=== PATIENT | female | born 1975 | race African-American/Black ===

== ENCOUNTER 2021-05-10 11:26 | Emergency (ER) | payer OTHER ==
[2021-05-10] MEDS ORDERED: HYDROcodone/Acetaminophen 5/325 mg Tablet ONE ×2 (12:26→13:02)
[2021-05-10] MEDS ORDERED: Ondansetron ODT 4 MG TAB ONE ×2 (12:27→13:02)
[2021-05-10] MEDS ORDERED: Ibuprofen 800 MG TAB ONE (12:27)
[2021-05-10] MEDS ORDERED: Lorazepam 1 MG TAB ONE (12:28)
[2021-05-10 12:31] LABS: #Lymphocytes 0.6 thou/uL (1.20-3.40); #Monocytes 0.4 thou/uL (0.11-0.59); #Neutrophils 4.3 thou/uL (1.40-6.50); %Basophils 0.3 % (0.0-1.0); %Eosinophils 0.1 % (0.0-10.0); %Lymphocytes 10.6 % (21.0-51.0); %Monocytes 7.9 % (0.0-10.0); Hemoglobin 13.8 g/dL (12.0-16.0); Mean Corpuscular HGB CONC 33.6 g/dL (32.0-36.0); Mean Corpuscular Hemoglobin 30.6 pg (27.0-31.0); Platelet Count 474 thou/uL (130-400); RBC Distribution Width 12.1 % (11.5-14.5); Red Blood Cell (RBC) Count 4.52 mill/uL (4.20-5.40); White Blood Cell (WBC) Count 5.4 thou/uL (4.8-10.8)
[2021-05-10 12:53] LABS: ALT (SGPT) 15 U/L (8-55); AST (SGOT) 25 U/L (5-34); Albumin 3.7 g/dL (3.5-5.0); Alkaline Phosphatase 69 U/L (40-110); Anion Gap 16 mmol/L (10-20); BUN (Urea Nitrogen) 14 mg/dL (7.0-18.7); Bilirubin, Total 0.9 mg/dL (0.2-1.2); Calc. Creatinine Clearance 0 mL/min (70-130); Calcium 9.4 mg/dL (7.8-10.44); Carbon Dioxide 27 mmol/L (22-29); Chloride 91 mmol/L (98-107); Globulin 3.8 g/dL (2.4-3.5); Glucose 107 mg/dL (70-105); Potassium 4.7 mmol/L (3.5-5.1); Protein, Total 7.5 g/dL (6.0-8.3); Sodium 129 mmol/L (136-145)
[2021-05-10] MEDS ORDERED: Metoprolol Tartrate 50 MG TAB ONE (13:39)
== END 2021-05-10 15:08 | disposition home or self-care (01) ==
LOC: ERS 11:26
DX: F43.0 Acute stress reaction (principal); I10 Essential (primary) hypertension; G89.18 Other acute postprocedural pain; N64.4 Mastodynia
CPT/HCPCS: 36415; 80053; 84484; 85025; 93005; Q0162

== ENCOUNTER 2021-05-14 16:49 | Inpatient (IN) | payer OTHER ==
[~2021-05-14 16:49] MED LIST: Iopamidol-370 76% 500 ML 1 ML ONE
[2021-05-14 17:44] LABS: #Lymphocytes 0.8 thou/uL (1.20-3.40); #Monocytes 0.4 thou/uL (0.11-0.59); #Neutrophils 3.6 thou/uL (1.40-6.50); %Basophils 0.2 % (0.0-1.0); %Eosinophils 0.2 % (0.0-10.0); %Lymphocytes 16.2 % (21.0-51.0); %Monocytes 7.8 % (0.0-10.0); %Neutrophils 75.7 % (42.0-75.0); Hemoglobin 13.5 g/dL (12.0-16.0); Mean Corpuscular HGB CONC 31.6 g/dL (32.0-36.0); Mean Corpuscular Hemoglobin 29.1 pg (27.0-31.0); Mean Corpuscular Volume 92.1 fL (78.0-98.0); Mean Platelet Volume 6.8 fL (7.4-10.4); Platelet Count 488 thou/uL (130-400); RBC Distribution Width 12.3 % (11.5-14.5); Red Blood Cell (RBC) Count 4.65 mill/uL (4.20-5.40); White Blood Cell (WBC) Count 4.7 thou/uL (4.8-10.8)
[2021-05-14 18:03] LABS: ALT (SGPT) 16 U/L (8-55); AST (SGOT) 28 U/L (5-34); Albumin 3.7 g/dL (3.5-5.0); Alkaline Phosphatase 68 U/L (40-110); Anion Gap 16 mmol/L (10-20); BUN (Urea Nitrogen) 19 mg/dL (7.0-18.7); Bilirubin, Total 0.7 mg/dL (0.2-1.2); Calc. Creatinine Clearance 0 mL/min (70-130); Calcium 9.8 mg/dL (7.8-10.44); Carbon Dioxide 27 mmol/L (22-29); Chloride 89 mmol/L (98-107); Globulin 3.9 g/dL (2.4-3.5); Glucose 111 mg/dL (70-105); Potassium 4.5 mmol/L (3.5-5.1); Protein, Total 7.6 g/dL (6.0-8.3); Sodium 127 mmol/L (136-145)
[2021-05-14] MEDS ORDERED: Furosemide 40 MG/4 ML VIAL ONE (19:10)
[2021-05-14] MEDS ORDERED: Morphine 4 MG/ML VIAL ONE (19:10)
[2021-05-14] MEDS ORDERED: Ondansetron PF 4 MG/2 ML Vial ONE (19:10)
[2021-05-14] MEDS ORDERED: Lorazepam 2 MG/ML VIAL ONE (19:10)
[2021-05-14] MEDS ORDERED: Acetaminophen 325 MG TAB PO PRN (19:19)
[2021-05-14] MEDS ORDERED: Zolpidem Tartrate 5 MG TAB PO PRN (19:19)
[2021-05-14] MEDS ORDERED: Senokot S 8.6-50 MG TAB PO PRN (19:19)
[2021-05-14] MEDS ORDERED: Ondansetron PF 4 MG/2 ML Vial IVP PRN (19:19)
[2021-05-14] MEDS ORDERED: Labetalol HCl 100 MG/20 ML VIAL SLOW IVP PRN (19:24)
[2021-05-14] MEDS ORDERED: Benzonatate 100 MG CAP PO PRN (19:25)
[2021-05-14 20:37] LABS: Hemoglobin 13.8 g/dL (12.0-16.0); Mean Corpuscular HGB CONC 33.6 g/dL (32.0-36.0); Mean Corpuscular Volume 92.2 fL (78.0-98.0); Mean Platelet Volume 7.2 fL (7.4-10.4); Platelet Count 417 thou/uL (130-400); RBC Distribution Width 12.2 % (11.5-14.5); Red Blood Cell (RBC) Count 4.44 mill/uL (4.20-5.40); White Blood Cell (WBC) Count 4.9 thou/uL (4.8-10.8)
[2021-05-14 20:57] LABS: ALT (SGPT) 15 U/L (8-55); AST (SGOT) 27 U/L (5-34); Albumin 3.7 g/dL (3.5-5.0); Alkaline Phosphatase 67 U/L (40-110); Anion Gap 17 mmol/L (10-20); BUN (Urea Nitrogen) 20 mg/dL (7.0-18.7); Bilirubin, Total 0.7 mg/dL (0.2-1.2); Calc. Creatinine Clearance 0 mL/min (70-130); Calcium 9.6 mg/dL (7.8-10.44); Carbon Dioxide 27 mmol/L (22-29); Chloride 88 mmol/L (98-107); Globulin 3.7 g/dL (2.4-3.5); Glucose 113 mg/dL (70-105); Potassium 4.7 mmol/L (3.5-5.1); Protein, Total 7.4 g/dL (6.0-8.3); Sodium 127 mmol/L (136-145)
[2021-05-14 21:07] LABS: Band 3 % (5-11); Lymphocytes 22 % (21-51); MDiff Complete? YES; Monocytes 7 % (0-10); Neutrophil 68 % (42-75)
[2021-05-14 21:24] VITALS: BP 129/105
[2021-05-14] MEDS ORDERED: Famotidine/PF 20 mg/2ml Vial ONE (21:54)
[2021-05-14] MEDS ORDERED: Furosemide 40 MG/4 ML VIAL SLOW IVP SCH (22:00)
[2021-05-14] MEDS ORDERED: Nicotine 21 MG PATCH TD SCH (22:00)
[2021-05-14] MEDS: Famotidine/PF 20 mg/2ml Vial SLOW IVP SCH (23:41)
[2021-05-15] MEDS ORDERED: Labetalol HCl 100 MG/20 ML VIAL ONE (00:13)
[2021-05-15] MEDS ORDERED: Benzonatate 100 MG CAP ONE (01:15)
[2021-05-15] MEDS ORDERED: Labetalol HCl 100 MG/20 ML VIAL SLOW IVP SCH (04:00)
[2021-05-15 04:55] LABS: SARS-CoV-2 NAA Rapid Test Not Detected (NotDetected)
[2021-05-15 05:16] VITALS: BMI 27.8
[2021-05-15 06:54] LABS: #Lymphocytes 0.7 thou/uL (1.20-3.40); #Monocytes 0.6 thou/uL (0.11-0.59); #Neutrophils 4.1 thou/uL (1.40-6.50); %Basophils 0.8 % (0.0-1.0); %Lymphocytes 12.6 % (21.0-51.0); %Monocytes 11.7 % (0.0-10.0); Hemoglobin 13.2 g/dL (12.0-16.0); Mean Corpuscular HGB CONC 32.4 g/dL (32.0-36.0); Mean Corpuscular Hemoglobin 29.9 pg (27.0-31.0); Mean Corpuscular Volume 92.3 fL (78.0-98.0); Platelet Count 456 thou/uL (130-400); RBC Distribution Width 12.2 % (11.5-14.5); White Blood Cell (WBC) Count 5.5 thou/uL (4.8-10.8)
[2021-05-15 07:05] LABS: ALT (SGPT) 14 U/L (8-55); AST (SGOT) 29 U/L (5-34); Albumin 3.6 g/dL (3.5-5.0); Alkaline Phosphatase 64 U/L (40-110); Anion Gap 18 mmol/L (10-20); BUN (Urea Nitrogen) 23 mg/dL (7.0-18.7); Bilirubin, Total 0.6 mg/dL (0.2-1.2); Calc. Creatinine Clearance 136 mL/min (70-130); Calcium 9.5 mg/dL (7.8-10.44); Carbon Dioxide 23 mmol/L (22-29); Chloride 91 mmol/L (98-107); Globulin 3.8 g/dL (2.4-3.5); Glucose 100 mg/dL (70-105); Potassium 5.5 mmol/L (3.5-5.1); Protein, Total 7.4 g/dL (6.0-8.3); Sodium 126 mmol/L (136-145)
[2021-05-15 08:37] LABS: Bacteria/HPF None Seen HPF (None Seen); Bilirubin Negative (Negative); Blood, Urine Negative (Negative); Clarity Clear (Clear); Glucose, Urine (Dipstick) Normal (Negative); Ketone, Urine Negative (Negative); Leukocyte Negative Leu/uL (Negative); Nitrite Negative (Negative); Protein, Urine (Dipstick) 30 mg/dL (Neg-Trace); RBC/HPF 0-3 HPF (0-3); Specific Gravity, Urine 1.046 (1.002-1.036); Squamous Epithelial 0-3 HPF (0-3); Urobilinogen Normal mg/dL (Less than 2); WBC/HPF 0-3 HPF (0-3); pH, Urine 5.5 (5.0-9.0)
[2021-05-15 08:42] LABS: Urine Culture Reflex No No
[2021-05-15] MEDS ORDERED: Sodium Chloride 0.9% 1,000 ML IV SCH (09:15)
[2021-05-15] MEDS: Famotidine/PF 20 mg/2ml Vial SLOW IVP SCH (11:10)
[2021-05-15 12:05] LABS: RBC Count-Automated (BF) 1522 /cu.mm; WBC/Nucleated-Auto (BF) 1136 uL
[2021-05-15 12:08] LABS: Body Fluid Source Pleural Fluid
[2021-05-15 12:09] LABS: BF Color Yellow; Clarity Hazy (Clear); Tube # EDTA
[2021-05-15 12:14] LABS: Fluid, Protein 5.3 g/dL (Not Available)
[2021-05-15 12:17] VITALS: TEMP 97.4
[2021-05-15 12:50] LABS: Cell Count Non Hematic 94 %; Lymphocytes 6 %
== END 2021-05-15 12:58 | disposition left against medical advice (07) | DRG 181 ==
LOC: ERS 16:49 → ERHOLD 19:27 → IMCU/EMU 05-15 04:55
PROVIDERS: ADMIT Student in an Organized Health Care Education/Training Program; ATTEND Internal Medicine
PROC: 0W9B3ZZ Drainage of Left Pleural Cavity, Percutaneous Approach (ICD-10-PCS; principal; 2021-05-15)
DX: C78.2 Secondary malignant neoplasm of pleura (principal); E87.1 Hypo-osmolality and hyponatremia; C50.912 Malignant neoplasm of unspecified site of left female breast; J91.0 Malignant pleural effusion; R00.0 Tachycardia, unspecified; F17.210 Nicotine dependence, cigarettes, uncomplicated; F41.9 Anxiety disorder, unspecified; Z20.822 Contact with and (suspected) exposure to COVID-19; F32.9 Major depressive disorder, single episode, unspecified
CPT/HCPCS: 36415; 71045; 71275; 80053; 81001; 83615; 83880; 83930; 83935; 84157; 84300; 84484; 85025; 85060; 87070; 87205; 88112; 88305; 88341; 88342; 89051; 93005; 94640; 96374; 96375; J1940; J2060; J2270; J2405; J7620; Q9967; S0028; U0002

== ENCOUNTER 2021-05-17 10:32 | Day surgery (SDC) | payer OTHER ==
[2021-05-16 15:34] VITALS: BMI 27.4
[2021-05-17] MEDS ORDERED: Ketorolac Tromethamine 30 MG/ML VIAL ONE (11:03)
[2021-05-17] MEDS ORDERED: Acetaminophen 500 MG TAB ONE (11:03)
[2021-05-17] MEDS ORDERED: ceFAZolin 2 GM/DEX 5% 100 ML BAG ONE (11:03)
[2021-05-17] MEDS ORDERED: Fentanyl 100 MCG/2 ML VIAL ONE (12:13)
[2021-05-17] MEDS ORDERED: Propofol 500 MG/50 ML VIAL ONE (12:13)
[2021-05-17] MEDS ORDERED: Lidocaine 2% Jelly 5 ML TUBE ONE (12:24)
[2021-05-17] MEDS ORDERED: Lidocaine 1% w/Epinephrine 1:100K 20 ML VIAL ONE (12:28)
[2021-05-17] MEDS ORDERED: Bupivacaine 0.25% HCL 30 ML VIAL ONE (12:28)
[2021-05-17] MEDS ORDERED: Midazolam HCl 2 mg/2 ml Vial ONE (13:04)
== END 2021-05-17 15:20 | disposition home or self-care (01) ==
LOC: SDC 10:32
PROVIDERS: ATTEND Specialist
PROC: 02HV33Z Insertion of Infusion Device into Superior Vena Cava, Percutaneous Approach (ICD-10-PCS; principal; 2021-05-17)
PROC: 0JH60WZ Insertion of Totally Implantable Vascular Access Device into Chest Subcutaneous Tissue and Fascia, Open Approach (ICD-10-PCS; principal; 2021-05-17)
DX: C50.912 Malignant neoplasm of unspecified site of left female breast (principal); J91.0 Malignant pleural effusion
CPT/HCPCS: 71045; C1788; J1642; J1885; J2250; J2704; J3010; S0020

== ENCOUNTER 2021-05-22 13:54 | Inpatient (IN) | payer OTHER ==
[2021-05-22 14:42] LABS: #Lymphocytes 0.7 thou/uL (1.20-3.40); #Monocytes 0.4 thou/uL (0.11-0.59); #Neutrophils 3.8 thou/uL (1.40-6.50); %Eosinophils 0.3 % (0.0-10.0); %Lymphocytes 13.7 % (21.0-51.0); %Monocytes 8.8 % (0.0-10.0); %Neutrophils 77.2 % (42.0-75.0); Hemoglobin 14.5 g/dL (12.0-16.0); Mean Corpuscular HGB CONC 32.5 g/dL (32.0-36.0); Mean Corpuscular Hemoglobin 29.8 pg (27.0-31.0); Mean Corpuscular Volume 91.7 fL (78.0-98.0); Mean Platelet Volume 6.5 fL (7.4-10.4); Platelet Count 354 thou/uL (130-400); RBC Distribution Width 12.5 % (11.5-14.5); Red Blood Cell (RBC) Count 4.86 mill/uL (4.20-5.40); White Blood Cell (WBC) Count 4.9 thou/uL (4.8-10.8)
[2021-05-22 14:50] LABS: INR-International Normal Ratio 1.1; PTT 30.4 sec (22.9-36.1); Prothrombin Time 13.8 sec (12.0-14.7)
[2021-05-22 15:03] LABS: ALT (SGPT) 17 U/L (8-55); AST (SGOT) 32 U/L (5-34); Albumin 3.6 g/dL (3.5-5.0); Alkaline Phosphatase 71 U/L (40-110); Anion Gap 15 mmol/L (10-20); BUN (Urea Nitrogen) 13 mg/dL (7.0-18.7); Bilirubin, Total 0.6 mg/dL (0.2-1.2); Calc. Creatinine Clearance 0 mL/min (70-130); Calcium 9.5 mg/dL (7.8-10.44); Carbon Dioxide 30 mmol/L (22-29); Chloride 90 mmol/L (98-107); Glucose 111 mg/dL (70-105); Potassium 4.4 mmol/L (3.5-5.1); Protein, Total 7.6 g/dL (6.0-8.3); Sodium 131 mmol/L (136-145)
[2021-05-22] MEDS ORDERED: Furosemide 40 MG/4 ML VIAL ONE (15:52)
[2021-05-22] MEDS ORDERED: HYDROcodone/Acetaminophen 5/325 mg Tablet PO PRN (17:40)
[2021-05-22] MEDS ORDERED: Acetaminophen 650 MG Suppository PR PRN (17:40)
[2021-05-22] MEDS ORDERED: Ondansetron PF 4 MG/2 ML Vial IVP PRN (17:40)
[2021-05-22] MEDS ORDERED: Senokot S 8.6-50 MG TAB PO PRN (17:40)
[2021-05-22] MEDS ORDERED: ceFAZolin Sodium/D5W 2 GM in Premix Bag 1 BAG IVPB SCH (17:45)
[2021-05-22 18:40] LABS: Troponin I Less than 0.010 ng/mL (< 0.028)
[2021-05-22 19:00] LABS: Bacteria/HPF 1+ HPF (None Seen); Bilirubin Negative (Negative); Blood, Urine Negative (Negative); Clarity Clear (Clear); Glucose, Urine (Dipstick) Normal (Negative); Ketone, Urine Negative (Negative); Leukocyte 25 Leu/uL (Negative); Nitrite Negative (Negative); Protein, Urine (Dipstick) 10 mg/dL (Neg-Trace); RBC/HPF 0-3 HPF (0-3); Specific Gravity, Urine 1.015 (1.002-1.036); Squamous Epithelial 0-3 HPF (0-3); Urobilinogen Normal mg/dL (Less than 2); WBC/HPF 0-3 HPF (0-3)
[2021-05-22] MEDS: Nicotine 14 MG PATCH TD SCH (20:45)
[2021-05-22 21:35] LABS: Troponin I Less than 0.010 ng/mL (< 0.028)
[2021-05-22] MEDS: Famotidine 20 MG TAB PO SCH (23:02)
[2021-05-22] MEDS: Metoprolol Tartrate 25 MG TAB PO SCH (23:03)
[2021-05-22 23:31] VITALS: BMI 27.1
[2021-05-23 05:55] LABS: Anion Gap 16 mmol/L (10-20); BUN (Urea Nitrogen) 15 mg/dL (7.0-18.7); Calc. Creatinine Clearance 145 mL/min (70-130); Calcium 9.4 mg/dL (7.8-10.44); Carbon Dioxide 27 mmol/L (22-29); Chloride 90 mmol/L (98-107); Glucose 112 mg/dL (70-105); Potassium 4.5 mmol/L (3.5-5.1); Sodium 128 mmol/L (136-145)
[2021-05-23 05:57] LABS: #Lymphocytes 0.8 thou/uL (1.20-3.40); #Monocytes 0.5 thou/uL (0.11-0.59); #Neutrophils 4.1 thou/uL (1.40-6.50); %Basophils 0.4 % (0.0-1.0); %Eosinophils 0.1 % (0.0-10.0); %Lymphocytes 14.7 % (21.0-51.0); %Monocytes 9.6 % (0.0-10.0); %Neutrophils 75.1 % (42.0-75.0); Hemoglobin 13.4 g/dL (12.0-16.0); Mean Corpuscular HGB CONC 31.4 g/dL (32.0-36.0); Mean Corpuscular Hemoglobin 28.8 pg (27.0-31.0); Mean Corpuscular Volume 91.9 fL (78.0-98.0); Mean Platelet Volume 7.1 fL (7.4-10.4); Platelet Count 349 thou/uL (130-400); RBC Distribution Width 12.3 % (11.5-14.5); Red Blood Cell (RBC) Count 4.65 mill/uL (4.20-5.40); White Blood Cell (WBC) Count 5.4 thou/uL (4.8-10.8)
[2021-05-23] MEDS: Famotidine 20 MG TAB PO SCH ×2 (08:03→21:12)
[2021-05-23] MEDS: Metoprolol Tartrate 25 MG TAB PO SCH ×2 (08:03→21:12)
[2021-05-23] MEDS ORDERED: PROPOFOL 200 MG/20 ML VIAL ONE (08:36)
[2021-05-23] MEDS ORDERED: Succinylcholine 200 MG/10 ml SYRINGE FS ONE (08:36)
[2021-05-23] MEDS ORDERED: Enoxaparin Sodium 40 MG/0.4 ML SYRINGE SC SCH (09:00)
[2021-05-23] MEDS ORDERED: ceFAZolin 2 GM/DEX 5% 100 ML BAG ONE (10:10)
[2021-05-23] MEDS ORDERED: Fentanyl 100 MCG/2 ML VIAL ONE ×3 (10:18→13:13)
[2021-05-23] MEDS ORDERED: Propofol 500 MG/50 ML VIAL ONE (10:18)
[2021-05-23] MEDS ORDERED: Lidocaine 1% PF 5 ML VIAL ONE (10:34)
[2021-05-23] MEDS ORDERED: Promethazine HCl 25 MG/ML VIAL IVPB PRN (11:12)
[2021-05-23] MEDS ORDERED: Ondansetron HCl/PF 4 MG/2 ML Vial IVP PRN (11:12)
[2021-05-23] MEDS ORDERED: Promethazine HCl 25 MG/ML VIAL IM PRN (11:12)
[2021-05-23] MEDS ORDERED: Lorazepam 2 MG/ML VIAL ONE (11:38)
[2021-05-23] MEDS: Fentanyl 100 MCG/2 ML VIAL SLOW IVP PRN (13:20)
[2021-05-23] MEDS: cefTRIAXone\\ROCEPHIN 1 GM in Sodium Chloride 0.9% 100 ML IVPB SCH (13:34)
[2021-05-23] MEDS: Lidocaine 5% Patch TD SCH (13:35)
[2021-05-23 13:36] LABS: Actual Bicarbonate (HCO3a) 28.2 mEq/L (22-28); Base Excess (BEa) 0.8 mEq/L (-2.0 to +3.0); CO2 Tension 55.5 mmHg (35.0-45.0); Calcium, Ionized (arterial) 1.16 mmol/L (1.12-1.30); Carboxyhemoglobin (COHb) 1.5 gm% (0.0-3.0); Hemoglobin (Hb) 16.1 g/dL (12.0-16.0); O2 Tension (PaO2), arterial 62.6 mmHg (80.0-100.0); pH, Arterial 7.32 (7.35-7.45)
[2021-05-23 13:52] LABS: ALV-art Gradient 581.025 mmHg (0-20); Puncture Site LRA
[2021-05-23] MEDS ORDERED: Benztropine Mesylate 2 MG/2 ML VIAL IVP SCH (14:00)
[2021-05-23] MEDS ORDERED: Sodium Chloride 0.9% 10 ML ONE (14:08)
[2021-05-23] MEDS ORDERED: Diltiazem 125 MG in Sodium Chloride 0.9% 100 ML IVPB SCH ×2 (14:15→15:06)
[2021-05-23] MEDS: Sodium Chloride 0.9% 1,000 ML IV SCH (15:00)
[2021-05-23 15:59] LABS: Actual Bicarbonate (HCO3a) 26.6 mEq/L (22-28); Base Excess (BEa) 0.4 mEq/L (-2.0 to +3.0); CO2 Tension 48.5 mmHg (35.0-45.0); Calcium, Ionized (arterial) 1.13 mmol/L (1.12-1.30); Hemoglobin (Hb) 15.5 g/dL (12.0-16.0); O2 Tension (PaO2), arterial 63.7 mmHg (80.0-100.0); Potassium - ABG Lab 4.77 mmol/L (3.70-5.30); pH, Arterial 7.36 (7.35-7.45)
[2021-05-23 16:28] LABS: ALV-art Gradient 303.475 mmHg (0-20); Puncture Site RBA
[2021-05-23] MEDS: Nicotine 14 MG PATCH TD SCH (17:39)
[2021-05-23] MEDS: Transdermal Patch Removal TOP SCH (21:13)
[2021-05-23] MEDS ORDERED: FLU VACC QS2021-22(6MOS UP)/PF 60 MCG/0.5 ML SYRINGE IM ONE (23:45)
[2021-05-23] MEDS ORDERED: Prevnar 13-Val Conj/PF 0.5 ML SYRINGE IM ONE (23:45)
[2021-05-24] MEDS: Sodium Chloride 0.9% 1,000 ML IV SCH ×2 (00:29→12:04)
[2021-05-24 01:15] LABS: Actual Bicarbonate (HCO3a) 29.3 mEq/L (22-28); Base Excess (BEa) -3.2 mEq/L (-2.0 to +3.0); Calcium, Ionized (arterial) 1.18 mmol/L (1.12-1.30); Hemoglobin (Hb) 14.8 g/dL (12.0-16.0); Potassium - ABG Lab 5.81 mmol/L (3.70-5.30)
[2021-05-24 01:16] LABS: CO2 Tension 95.3 mmHg (35.0-45.0); O2 Tension (PaO2), arterial 56.1 mmHg (80.0-100.0); pH, Arterial 7.11 (7.35-7.45)
[2021-05-24 01:17] LABS: ALV-art Gradient 537.775 mmHg (0-20); Puncture Site RRA
[2021-05-24] MEDS ORDERED: EPINEPHrine 1 MG/10 ML Abboject SYRINGE ONE (01:44)
[2021-05-24] MEDS ORDERED: Sodium Bicarb 50 MEQ/50 ML Abboject 8.4% SYRINGE ONE ×2 (01:44→03:27)
[2021-05-24] MEDS ORDERED: Fentanyl BOLUS 250 ML IVPB PRN (01:45)
[2021-05-24] MEDS ORDERED: Fentanyl CADD 100 ML IV SCH (01:45)
[2021-05-24] MEDS ORDERED: Lorazepam 2 MG/ML VIAL SLOW IVP PRN (01:45)
[2021-05-24] MEDS ORDERED: Propofol BOLUS 1,000 MG/100 ML VIAL IV PRN (01:45)
[2021-05-24] MEDS ORDERED: Propofol 1,000 MG/100 ML VIAL IV PRN (01:45)
[2021-05-24] MEDS ORDERED: Morphine 2 MG/ML VIAL SLOW IVP PRN (01:45)
[2021-05-24] MEDS ORDERED: DISCONTINUE PREVIOUS NARCOTIC PAIN MEDICATIONS AND BENZODIAZEPINES FS SCH (01:45)
[2021-05-24] MEDS ORDERED: PROPOFOL 200 MG/20 ML VIAL IV SCH (02:30)
[2021-05-24] MEDS ORDERED: Succinylcholine Chloride 200 MG/10 ML VIAL IV SCH (02:30)
[2021-05-24 02:34] LABS: #Monocytes 0.2 thou/uL (0.11-0.59); #Neutrophils 7.6 thou/uL (1.40-6.50); %Basophils 0.3 % (0.0-1.0); %Eosinophils 0.1 % (0.0-10.0); %Lymphocytes 11.7 % (21.0-51.0); %Monocytes 2.4 % (0.0-10.0); %Neutrophils 85.6 % (42.0-75.0); Mean Corpuscular HGB CONC 31.3 g/dL (32.0-36.0); Mean Corpuscular Hemoglobin 30.3 pg (27.0-31.0); Mean Corpuscular Volume 96.6 fL (78.0-98.0); Platelet Count 276 thou/uL (130-400); RBC Distribution Width 12.4 % (11.5-14.5); Red Blood Cell (RBC) Count 4.63 mill/uL (4.20-5.40); White Blood Cell (WBC) Count 8.8 thou/uL (4.8-10.8)
[2021-05-24 02:49] LABS: Troponin I Less than 0.010 ng/mL (< 0.028)
[2021-05-24 02:52] LABS: ALT (SGPT) 25 U/L (8-55); AST (SGOT) 59 U/L (5-34); Albumin 2.2 g/dL (3.5-5.0); Alkaline Phosphatase 53 U/L (40-110); Anion Gap 22 mmol/L (10-20); BUN (Urea Nitrogen) 30 mg/dL (7.0-18.7); Bilirubin, Total 0.7 mg/dL (0.2-1.2); Calc. Creatinine Clearance 68 mL/min (70-130); Calcium 7.8 mg/dL (7.8-10.44); Carbon Dioxide 26 mmol/L (22-29); Chloride 94 mmol/L (98-107); Globulin 2.6 g/dL (2.4-3.5); Glucose 101 mg/dL (70-105); Lactic Acid 7.9 mmol/L (0.5-2.2); Magnesium 2.1 mg/dL (1.6-2.6); Potassium 5.7 mmol/L (3.5-5.1); Protein, Total 4.8 g/dL (6.0-8.3); Sodium 136 mmol/L (136-145)
[2021-05-24] MEDS ORDERED: Communication Order-Pharmacy FS ONE (03:00)
[2021-05-24] MEDS: Vasopressin 20 UNIT, Admixture Fee 1 EACH in Sodium Chloride 0.9% 50 ML IV SCH ×2 (03:11→18:29)
[2021-05-24] MEDS ORDERED: EPINEPHrine 4 MG in Dextrose 5% in Water 250 ML IV SCH (03:15)
[2021-05-24] MEDS ORDERED: Enoxaparin Sodium 80 MG/0.8 ML SYRINGE SC SCH (03:15)
[2021-05-24] MEDS ORDERED: Sodium Chloride 0.9% 1,000 ML IV SCH ×2 (03:15)
[2021-05-24 03:19] LABS: Actual Bicarbonate (HCO3a) 29.3 mEq/L (22-28); Base Excess (BEa) -1.2 mEq/L (-2.0 to +3.0); Calcium, Ionized (arterial) 1.09 mmol/L (1.12-1.30); Carboxyhemoglobin (COHb) 0.4 gm% (0.0-3.0); Hemoglobin (Hb) 14.1 g/dL (12.0-16.0); Potassium - ABG Lab 5.37 mmol/L (3.70-5.30)
[2021-05-24 03:20] LABS: pH, Arterial 7.19 (7.35-7.45)
[2021-05-24 03:21] LABS: CO2 Tension 78.9 mmHg (35.0-45.0); O2 Tension (PaO2), arterial 59.7 mmHg (80.0-100.0)
[2021-05-24 03:22] LABS: Puncture Site RRA
[2021-05-24 03:23] LABS: ALV-art Gradient 554.675 mmHg (0-20)
[2021-05-24] MEDS ORDERED: Vecuronium 10 MG VIAL IVP PRN (03:24)
[2021-05-24] MEDS ORDERED: Sodium Bicarb 50 MEQ/50 ML Abboject 8.4% SYRINGE IVP SCH (03:30)
[2021-05-24 06:13] LABS: Hemoglobin 13.2 g/dL (12.0-16.0); Platelet Count 281 thou/uL (130-400)
[2021-05-24] MEDS: Norepinephrine 8 MG in Dextrose 5% in Water 242 ML IVPB PRN (06:32)
[2021-05-24 06:33] LABS: Anion Gap 23 mmol/L (10-20); BUN (Urea Nitrogen) 41 mg/dL (7.0-18.7); Calc. Creatinine Clearance 55 mL/min (70-130); Calcium 7.9 mg/dL (7.8-10.44); Carbon Dioxide 26 mmol/L (22-29); Chloride 93 mmol/L (98-107); Glucose 167 mg/dL (70-105); Potassium 5.7 mmol/L (3.5-5.1); Sodium 136 mmol/L (136-145)
[2021-05-24] MEDS ORDERED: Dextrose 50% Abboject 50 ML SYRINGE SLOW IVP PRN (06:40)
[2021-05-24] MEDS ORDERED: Calcium Chloride 1 GM/10 ML Abboject SYRINGE IVP SCH (06:45)
[2021-05-24] MEDS ORDERED: Insulin Regular 300 UNITS/3 ML VIAL IVP SCH (06:45)
[2021-05-24 08:15] LABS: Actual Bicarbonate (HCO3a) 24.6 mEq/L (22-28); Base Excess (BEa) 1.1 mEq/L (-2.0 to +3.0); CO2 Tension 35.7 mmHg (35.0-45.0); Calcium, Ionized (arterial) 1.01 mmol/L (1.12-1.30); Carboxyhemoglobin (COHb) 0.7 gm% (0.0-3.0); Hemoglobin (Hb) 13.5 g/dL (12.0-16.0); O2 Tension (PaO2), arterial 66.7 mmHg (80.0-100.0); Potassium - ABG Lab 5.17 mmol/L (3.70-5.30); pH, Arterial 7.46 (7.35-7.45)
[2021-05-24 08:19] LABS: Puncture Site LBA
[2021-05-24 08:20] LABS: ALV-art Gradient 601.675 mmHg (0-20)
[2021-05-24] MEDS ORDERED: Dextrose 50% Abboject 50 ML SYRINGE SLOW IVP SCH (08:30)
[2021-05-24 09:38] LABS: Anion Gap 18 mmol/L (10-20); BUN (Urea Nitrogen) 43 mg/dL (7.0-18.7); Calc. Creatinine Clearance 50 mL/min (70-130); Calcium 8.7 mg/dL (7.8-10.44); Carbon Dioxide 27 mmol/L (22-29); Chloride 94 mmol/L (98-107); Glucose 202 mg/dL (70-105); Potassium 4.8 mmol/L (3.5-5.1); Sodium 134 mmol/L (136-145)
[2021-05-24] MEDS: Metoprolol Tartrate 25 MG TAB PO SCH (09:42)
[2021-05-24] MEDS: Lidocaine 5% Patch TD SCH (09:42)
[2021-05-24] MEDS: Famotidine 20 MG TAB PO SCH ×2 (09:43→20:45)
[2021-05-24 10:26] LABS: Hemoglobin 12.8 g/dL (12.0-16.0); Mean Corpuscular Hemoglobin 30.9 pg (27.0-31.0); Mean Corpuscular Volume 93.6 fL (78.0-98.0); Mean Platelet Volume 7.3 fL (7.4-10.4); Platelet Count 273 thou/uL (130-400); RBC Distribution Width 12.4 % (11.5-14.5); Red Blood Cell (RBC) Count 4.15 mill/uL (4.20-5.40); White Blood Cell (WBC) Count 9.9 thou/uL (4.8-10.8)
[2021-05-24] MEDS ORDERED: Refresh Lacri-lube Opth Oint 7 GM TUBE EA EYE PRN (10:42)
[2021-05-24 11:06] LABS: Band 21 % (5-11); Lymphocytes 10 % (21-51); MDiff Complete? YES; Monocytes 5 % (0-10); Neutrophil 64 % (42-75); Platelet Morphology Comment Appears Adequate; Polychromasia SLIGHT = 2-3 cells (100X) (0-2/hpf)
[2021-05-24] MEDS: cefTRIAXone\\ROCEPHIN 1 GM in Sodium Chloride 0.9% 100 ML IVPB SCH (12:04)
[2021-05-24] MEDS: Nicotine 14 MG PATCH TD SCH (17:49)
[2021-05-24] MEDS: Enoxaparin Sodium 80 MG/0.8 ML SYRINGE SC SCH (20:44)
[2021-05-24] MEDS: metroNIDAZOLE 500 MG in Premix Bag 1 BAG IVPB SCH (20:44)
[2021-05-25] MEDS: Sodium Chloride 0.9% 1,000 ML IV SCH ×3 (00:03→16:08)
[2021-05-25] MEDS: Transdermal Patch Removal TOP SCH ×2 (00:08→20:37)
[2021-05-25] MEDS: metroNIDAZOLE 500 MG in Premix Bag 1 BAG IVPB SCH ×4 (02:24→20:31)
[2021-05-25 04:59] LABS: #Lymphocytes 0.8 thou/uL (1.20-3.40); #Monocytes 0.3 thou/uL (0.11-0.59); #Neutrophils 7.4 thou/uL (1.40-6.50); %Basophils 0.2 % (0.0-1.0); %Eosinophils 0.1 % (0.0-10.0); %Lymphocytes 8.9 % (21.0-51.0); %Monocytes 3.6 % (0.0-10.0); %Neutrophils 87.2 % (42.0-75.0); Hemoglobin 11.4 g/dL (12.0-16.0); Mean Corpuscular Hemoglobin 30.3 pg (27.0-31.0); Mean Corpuscular Volume 91.7 fL (78.0-98.0); Mean Platelet Volume 7.7 fL (7.4-10.4); Platelet Count 262 thou/uL (130-400); RBC Distribution Width 12.7 % (11.5-14.5); Red Blood Cell (RBC) Count 3.76 mill/uL (4.20-5.40); White Blood Cell (WBC) Count 8.5 thou/uL (4.8-10.8)
[2021-05-25 05:05] LABS: Lactic Acid 3.1 mmol/L (0.5-2.2)
[2021-05-25 05:26] LABS: Anion Gap 20 mmol/L (10-20); BUN (Urea Nitrogen) 48 mg/dL (7.0-18.7); Calc. Creatinine Clearance 50 mL/min (70-130); Carbon Dioxide 24 mmol/L (22-29); Chloride 96 mmol/L (98-107); Glucose 106 mg/dL (70-105); Potassium 4.8 mmol/L (3.5-5.1); Sodium 135 mmol/L (136-145)
[2021-05-25 07:26] LABS: Actual Bicarbonate (HCO3a) 24.1 mEq/L (22-28); Base Excess (BEa) 2.1 mEq/L (-2.0 to +3.0); CO2 Tension 29.6 mmHg (35.0-45.0); Calcium, Ionized (arterial) 1.05 mmol/L (1.12-1.30); Carboxyhemoglobin (COHb) 0.3 gm% (0.0-3.0); O2 Tension (PaO2), arterial 86.4 mmHg (80.0-100.0); Potassium - ABG Lab 4.38 mmol/L (3.70-5.30); pH, Arterial 7.53 (7.35-7.45)
[2021-05-25] MEDS: Lidocaine 5% Patch TD SCH (07:27)
[2021-05-25 07:30] LABS: Puncture Site RRA
[2021-05-25] MEDS: Enoxaparin Sodium 80 MG/0.8 ML SYRINGE SC SCH ×2 (07:30→20:33)
[2021-05-25] MEDS: Famotidine 20 MG TAB PO SCH ×2 (07:30→20:33)
[2021-05-25] MEDS ORDERED: Norepinephrine 4 MG/4 ML VIAL ONE (08:49)
[2021-05-25] MEDS: Norepinephrine 8 MG in Dextrose 5% in Water 242 ML IVPB PRN (09:13)
[2021-05-25] MEDS: cefTRIAXone\\ROCEPHIN 1 GM in Sodium Chloride 0.9% 100 ML IVPB SCH (11:37)
[2021-05-25] MEDS: Nicotine 14 MG PATCH TD SCH (16:08)
[2021-05-26] MEDS: metroNIDAZOLE 500 MG in Premix Bag 1 BAG IVPB SCH ×4 (02:16→20:33)
[2021-05-26] MEDS: Sodium Chloride 0.9% 1,000 ML IV SCH ×2 (02:17→12:52)
[2021-05-26 04:21] LABS: Hemoglobin 10.5 g/dL (12.0-16.0); Mean Corpuscular Hemoglobin 30.6 pg (27.0-31.0); Mean Corpuscular Volume 92.5 fL (78.0-98.0); Mean Platelet Volume 8.2 fL (7.4-10.4); Platelet Count 252 thou/uL (130-400); RBC Distribution Width 12.6 % (11.5-14.5); Red Blood Cell (RBC) Count 3.44 mill/uL (4.20-5.40); White Blood Cell (WBC) Count 7.7 thou/uL (4.8-10.8)
[2021-05-26 04:27] LABS: Lactic Acid 3.5 mmol/L (0.5-2.2)
[2021-05-26 04:32] LABS: Anion Gap 17 mmol/L (10-20); BUN (Urea Nitrogen) 62 mg/dL (7.0-18.7); Calc. Creatinine Clearance 56 mL/min (70-130); Calcium 7.7 mg/dL (7.8-10.44); Carbon Dioxide 25 mmol/L (22-29); Chloride 98 mmol/L (98-107); Glucose 111 mg/dL (70-105); Potassium 4.4 mmol/L (3.5-5.1); Sodium 136 mmol/L (136-145)
[2021-05-26 05:22] LABS: Band 15 % (5-11); Lymphocytes 7 % (21-51); MDiff Complete? YES; Neutrophil 78 % (42-75)
[2021-05-26 07:06] LABS: Actual Bicarbonate (HCO3a) 23.4 mEq/L (22-28); Base Excess (BEa) 2.6 mEq/L (-2.0 to +3.0); Calcium, Ionized (arterial) 1.03 mmol/L (1.12-1.30); Carboxyhemoglobin (COHb) 0.3 gm% (0.0-3.0); Hemoglobin (Hb) 11.3 g/dL (12.0-16.0); O2 Tension (PaO2), arterial 143.5 mmHg (80.0-100.0); Potassium - ABG Lab 3.85 mmol/L (3.70-5.30)
[2021-05-26 07:08] LABS: CO2 Tension 25.1 mmHg (35.0-45.0); pH, Arterial 7.59 (7.35-7.45)
[2021-05-26 07:09] LABS: ALV-art Gradient 217.275 mmHg (0-20); Puncture Site RRA
[2021-05-26] MEDS: Enoxaparin Sodium 80 MG/0.8 ML SYRINGE SC SCH ×2 (09:03→21:38)
[2021-05-26] MEDS: Famotidine 20 MG TAB PO SCH ×2 (09:03→21:38)
[2021-05-26] MEDS: Lidocaine 5% Patch TD SCH (12:52)
[2021-05-26] MEDS: cefTRIAXone\\ROCEPHIN 1 GM in Sodium Chloride 0.9% 100 ML IVPB SCH (13:27)
[2021-05-26] MEDS: Nicotine 14 MG PATCH TD SCH (17:52)
[2021-05-26] MEDS: Transdermal Patch Removal TOP SCH (21:44)
[2021-05-27] MEDS: Fentanyl 100 MCG/2 ML VIAL SLOW IVP PRN (01:30)
[2021-05-27] MEDS: Sodium Chloride 0.9% 1,000 ML IV SCH (02:15)
[2021-05-27] MEDS: metroNIDAZOLE 500 MG in Premix Bag 1 BAG IVPB SCH ×4 (02:18→20:01)
[2021-05-27] MEDS: Norepinephrine 8 MG in Dextrose 5% in Water 242 ML IVPB PRN (04:23)
[2021-05-27 04:41] LABS: Mean Corpuscular HGB CONC 32.5 g/dL (32.0-36.0); Mean Corpuscular Hemoglobin 30.1 pg (27.0-31.0); Mean Corpuscular Volume 92.3 fL (78.0-98.0); Mean Platelet Volume 8.5 fL (7.4-10.4); Platelet Count 260 thou/uL (130-400); RBC Distribution Width 12.7 % (11.5-14.5); Red Blood Cell (RBC) Count 3.31 mill/uL (4.20-5.40); White Blood Cell (WBC) Count 7.8 thou/uL (4.8-10.8)
[2021-05-27 04:58] LABS: ALT (SGPT) 56 U/L (8-55); AST (SGOT) 90 U/L (5-34); Albumin 2.3 g/dL (3.5-5.0); Alkaline Phosphatase 47 U/L (40-110); Anion Gap 14 mmol/L (10-20); BUN (Urea Nitrogen) 53 mg/dL (7.0-18.7); Bilirubin, Total 0.4 mg/dL (0.2-1.2); Calc. Creatinine Clearance 80 mL/min (70-130); Calcium 7.6 mg/dL (7.8-10.44); Carbon Dioxide 26 mmol/L (22-29); Chloride 103 mmol/L (98-107); Globulin 2.5 g/dL (2.4-3.5); Glucose 109 mg/dL (70-105); Protein, Total 4.8 g/dL (6.0-8.3); Sodium 139 mmol/L (136-145); Uric Acid 8.3 mg/dL (2.6-6.0)
[2021-05-27 05:11] LABS: Band 5 % (5-11); Lymphocytes 7 % (21-51); MDiff Complete? YES; Monocytes 2 % (0-10); Neutrophil 86 % (42-75)
[2021-05-27] MEDS: Lidocaine 5% Patch TD SCH (07:33)
[2021-05-27] MEDS: Enoxaparin Sodium 80 MG/0.8 ML SYRINGE SC SCH ×2 (07:39→21:43)
[2021-05-27] MEDS: Famotidine 20 MG TAB PO SCH ×2 (07:39→21:43)
[2021-05-27] MEDS: cefTRIAXone\\ROCEPHIN 1 GM in Sodium Chloride 0.9% 100 ML IVPB SCH (12:28)
[2021-05-27] MEDS: Nicotine 14 MG PATCH TD SCH (12:34)
[2021-05-27] MEDS: Transdermal Patch Removal TOP SCH (21:43)
[2021-05-28] MEDS: metroNIDAZOLE 500 MG in Premix Bag 1 BAG IVPB SCH ×3 (01:39→12:57)
[2021-05-28 04:46] LABS: Band 7 % (5-11); Hemoglobin 10.6 g/dL (12.0-16.0); Lymphocytes 6 % (21-51); MDiff Complete? YES; Mean Corpuscular HGB CONC 32.3 g/dL (32.0-36.0); Mean Corpuscular Hemoglobin 29.9 pg (27.0-31.0); Mean Corpuscular Volume 92.6 fL (78.0-98.0); Mean Platelet Volume 8.3 fL (7.4-10.4); Monocytes 5 % (0-10); Neutrophil 81 % (42-75); Platelet Count 301 thou/uL (130-400); RBC Distribution Width 12.8 % (11.5-14.5); Reactive Lymphocytes 1 % (0-10); Red Blood Cell (RBC) Count 3.54 mill/uL (4.20-5.40); White Blood Cell (WBC) Count 8.2 thou/uL (4.8-10.8)
[2021-05-28] MEDS: Enoxaparin Sodium 80 MG/0.8 ML SYRINGE SC SCH (07:37)
[2021-05-28] MEDS: Famotidine 20 MG TAB PO SCH (07:37)
[2021-05-28] MEDS: Lidocaine 5% Patch TD SCH (07:38)
[2021-05-28] MEDS: Sodium Chloride 0.9% 1,000 ML IV SCH (07:38)
[2021-05-28] MEDS: cefTRIAXone\\ROCEPHIN 1 GM in Sodium Chloride 0.9% 100 ML IVPB SCH (12:57)
[2021-05-28] MEDS ORDERED: Morphine 4 MG/ML VIAL SLOW IVP PRN (13:13)
[2021-05-28] MEDS ORDERED: Lorazepam 2 MG/ML VIAL SLOW IVP PRN (13:15)
[2021-05-28 14:39] VITALS: BP 104/60
[2021-05-28 14:57] VITALS: TEMP 98
[2021-05-28] MEDS: Nicotine 14 MG PATCH TD SCH (14:58)
== END 2021-05-28 16:24 | disposition hospice, inpatient (51) | DRG 597 ==
LOC: ERS 13:54 → ERHOLD 16:07 → 3SE 22:22 → CCU 05-23 12:41
PROVIDERS: ADMIT Internal Medicine Geriatric Medicine; ATTEND Internal Medicine
PROC: 0W9B30Z Drainage of Left Pleural Cavity with Drainage Device, Percutaneous Approach (ICD-10-PCS; principal; 2021-05-23)
PROC: 5A09357 Assistance with Respiratory Ventilation, Less than 24 Consecutive Hours, Continuous Positive Airway Pressure (ICD-10-PCS; 2021-05-23)
PROC: 5A12012 Performance of Cardiac Output, Single, Manual (ICD-10-PCS; 2021-05-24)
PROC: 3E043XZ Introduction of Vasopressor into Central Vein, Percutaneous Approach (ICD-10-PCS; 2021-05-24)
PROC: 06HY33Z Insertion of Infusion Device into Lower Vein, Percutaneous Approach (ICD-10-PCS; 2021-05-24)
PROC: 0BH17EZ Insertion of Endotracheal Airway into Trachea, Via Natural or Artificial Opening (ICD-10-PCS; 2021-05-24)
PROC: 5A2204Z Restoration of Cardiac Rhythm, Single (ICD-10-PCS; 2021-05-24)
PROC: 5A1955Z Respiratory Ventilation, Greater than 96 Consecutive Hours (ICD-10-PCS; 2021-05-24)
PROC: 0DH67UZ Insertion of Feeding Device into Stomach, Via Natural or Artificial Opening (ICD-10-PCS; 2021-05-25)
PROC: 3E0G76Z Introduction of Nutritional Substance into Upper GI, Via Natural or Artificial Opening (ICD-10-PCS; 2021-05-25)
DX: C50.912 Malignant neoplasm of unspecified site of left female breast (principal); J96.01 Acute respiratory failure with hypoxia; A41.9 Sepsis, unspecified organism; R65.21 Severe sepsis with septic shock; J96.02 Acute respiratory failure with hypercapnia; I46.8 Cardiac arrest due to other underlying condition; J18.9 Pneumonia, unspecified organism; J91.0 Malignant pleural effusion; G93.1 Anoxic brain damage, not elsewhere classified; E87.1 Hypo-osmolality and hyponatremia; C78.02 Secondary malignant neoplasm of left lung; N17.9 Acute kidney failure, unspecified; E87.2 Acidosis; G93.49 Other encephalopathy; Z66 Do not resuscitate; Z51.5 Encounter for palliative care; Z20.822 Contact with and (suspected) exposure to COVID-19; F17.210 Nicotine dependence, cigarettes, uncomplicated; F41.9 Anxiety disorder, unspecified; R00.1 Bradycardia, unspecified; E87.5 Hyperkalemia; R60.1 Generalized edema; D64.9 Anemia, unspecified; Z80.3 Family history of malignant neoplasm of breast; Z28.21 Immunization not carried out because of patient refusal; Z88.4 Allergy status to anesthetic agent; Z79.899 Other long term (current) drug therapy; Z79.891 Long term (current) use of opiate analgesic
CPT/HCPCS: 36415; 36416; 36600; 71045; 80048; 80053; 81003; 81015; 82805; 83605; 83615; 83735; 83880; 84484; 84550; 85007; 85025; 85027; 85610; 85730; 87040; 87086; 93005; 93010; 93306; 94002; 94003; 94660; 95816; 95819; 95957; 96374; C1729; J0171; J0330; J0515; J0696; J1650; J1815; J1940; J1956; J2060; J2270; J2704; J3010; J3490; J7050; J7070; J7620; P9045

== ENCOUNTER 2021-05-28 16:24 | Inpatient (IN) | payer OTHER ==
[2021-05-28] MEDS ORDERED: Lorazepam 2 MG/ML VIAL SLOW IVP PRN (17:34)
[2021-05-28] MEDS ORDERED: Morphine 4 MG/ML VIAL SLOW IVP PRN (17:37)
[2021-05-28] MEDS ORDERED: Ondansetron PF 4 MG/2 ML Vial IVP PRN (17:45)
[2021-05-28] MEDS ORDERED: diphenhydrAMINE 50 MG/ML VIAL IVP PRN (17:45)
[2021-05-28] MEDS ORDERED: Morphine 4 MG/ML VIAL SLOW IVP SCH (17:45)
[2021-05-28] MEDS ORDERED: Lorazepam 2 MG/ML VIAL SLOW IVP SCH (17:45)
[2021-05-28] MEDS ORDERED: Scopolamine 1.5 mg/72 hour Patch TOP SCH (17:45)
[2021-05-28] MEDS: Lorazepam 2 MG/ML VIAL SLOW IVP SCH ×3 (20:29→22:27)
[2021-05-28] MEDS: Morphine 4 MG/ML VIAL SLOW IVP SCH ×3 (20:30→22:27)
[2021-05-28 21:37] VITALS: BP 100/66; TEMP 98.5
[2021-05-29] MEDS ORDERED: Morphine 4 MG/ML VIAL SLOW IVP SCH (00:30)
[2021-05-29] MEDS ORDERED: Lorazepam 2 MG/ML VIAL SLOW IVP SCH (00:30)
== END 2021-05-28 23:40 | disposition expired | DRG 951 ==
LOC: CCU 16:24 → T4-B 19:00
PROVIDERS: ADMIT Family Medicine; ATTEND Family Medicine
DX: Z51.5 Encounter for palliative care (principal); J96.01 Acute respiratory failure with hypoxia; R65.21 Severe sepsis with septic shock; A41.9 Sepsis, unspecified organism; J18.9 Pneumonia, unspecified organism; J91.0 Malignant pleural effusion; E87.1 Hypo-osmolality and hyponatremia; C78.00 Secondary malignant neoplasm of unspecified lung; G93.1 Anoxic brain damage, not elsewhere classified; Z66 Do not resuscitate; Z20.822 Contact with and (suspected) exposure to COVID-19; C50.912 Malignant neoplasm of unspecified site of left female breast; F17.210 Nicotine dependence, cigarettes, uncomplicated; I46.9 Cardiac arrest, cause unspecified
CPT/HCPCS: J1200; J2060; J2270